=== PATIENT | male | born 1960 | race Two or more races ===

== ENCOUNTER 2017-05-13 05:43 | Emergency (ER) | payer OTHER ==
[~2017-05-13] VITALS: Ht 182.9 cm; Wt 99.8 kg
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
[2017-05-13] MEDS ORDERED: IBUPROFEN 400 MG TABLET ONE (06:14)
--- NOTE | 2017-05-13 06:20 | NUR ---
PT MEDICATED ORDERED.
[2017-05-13] MEDS ORDERED: IBUPROFEN 400 MG TABLET PO ONE (06:30)
--- NOTE | 2017-05-13 06:48 | NUR ---
PT TRANSPORTED TO RADIOLOGY FOR CT.
[2017-05-13 07:31] VITALS: BP 140/98
--- NOTE | 2017-05-13 07:32 | NUR ---
Patient discharged to home in stable condition. Written and verbal after care instructions given. Patient verbalizes understanding of instruction. nad noted upon discharge.
== END 2017-05-13 07:32 | disposition home or self-care (01) ==
LOC: ER 05:45
DX: S42.102A Fracture of unspecified part of scapula, left shoulder, initial encounter for closed fracture (principal); W01.0XXA Fall on same level from slipping, tripping and stumbling without subsequent striking against object, initial encounter; Y93.89 Activity, other specified; Y92.89 Other specified places as the place of occurrence of the external cause; Y99.9 Unspecified external cause status
CPT/HCPCS: 29105; 71250; 73030; 99284; A4606; Z7610